=== PATIENT | female | born 1990 | race Caucasian/White ===

== ENCOUNTER 2021-11-07 18:07 | Inpatient (IN) | payer OTHER ==
[~2021-11-07] VITALS: Ht 180.3 cm; Wt 113.4 kg
[2021-11-07 21:09] LABS: HEMOGLOBIN 12.1 gm/dl (12.3-15.3); RED BLOOD COUNT 5.06 M/UL (4.00-5.10); WHITE BLOOD COUNT 9.3 K/UL (4.5-11.0)
[2021-11-07 21:28] LABS: BUN/CREATININE RATIO 9 (0-10)
[2021-11-08 05:46] LABS: HEMOGLOBIN 12.3 gm/dl (12.3-15.3); RED BLOOD COUNT 5.18 M/UL (4.00-5.10); WHITE BLOOD COUNT 10.7 K/UL (4.5-11.0)
[2021-11-08 06:14] LABS: BUN/CREATININE RATIO 13 (0-10)
[2021-11-08] MEDS ORDERED: GLIPIZIDE ER5 MG PO (09:49)
[2021-11-08] MEDS ORDERED: PROAIR HFA8.5 GM INH (09:49)
[2021-11-08] MEDS ORDERED: CARAFATE1 GM/10 ML PO (09:50)
[2021-11-08] MEDS ORDERED: LOSARTAN POTASS50 MG PO (09:50)
[2021-11-08] MEDS ORDERED: TIZANIDINE HCL4 MG PO (09:50)
[2021-11-08] MEDS ORDERED: PROTONIX 40 MG40 M1 PO (09:50)
[2021-11-08] MEDS ORDERED: IBUPROFEN200 MG PO (09:51)
[2021-11-08] MEDS ORDERED: METFORMIN HCL1000 MG PO (09:51)
[2021-11-08] MEDS ORDERED: CETIRIZINE HCL10 MG PO (09:51)
[2021-11-08] MEDS ORDERED: TUMS200 MG PO (09:51)
[2021-11-08 22:58] LABS: RED BLOOD COUNT 5.01 M/UL (4.00-5.10)
[2021-11-08 23:19] LABS: BUN/CREATININE RATIO 12 (0-10)
[2021-11-09 08:19] LABS: HEMOGLOBIN 12.5 gm/dl (12.3-15.3); RED BLOOD COUNT 5.17 M/UL (4.00-5.10); WHITE BLOOD COUNT 11.8 K/UL (4.5-11.0)
[2021-11-09 08:41] LABS: BUN/CREATININE RATIO 11 (0-10)
[2021-11-09] MEDS ORDERED: METOPROLOL SUCC50 MG PO (13:14)
[2021-11-09] MEDS ORDERED: ASPIRIN EC81 MG PO (13:14)
[2021-11-09] MEDS ORDERED: BRILINTA 90 MG90 MG PO (13:14)
[2021-11-09] MEDS ORDERED: CRESTOR20 MG PO (13:14)
[2021-11-09] MEDS ORDERED: NITROGLYCERIN0.4 MG SL (13:14)
[2021-11-09] MEDS ORDERED: ENTRESTO 24 MG1 EACH PO (13:14)
== END 2021-11-09 14:20 | disposition home or self-care (01) | DRG 246 ==
LOC: ER1 18:07 → CDU 22:25 → PROG CARE 22:25
PROVIDERS: Family Medicine; Internal Medicine; Internal Medicine Cardiovascular Disease; ADMIT Internal Medicine
PROC: B24BZZZ Ultrasonography of Heart with Aorta (ICD-10-PCS; principal; 2021-11-08)
PROC: 027034Z Dilation of Coronary Artery, One Artery with Drug-eluting Intraluminal Device, Percutaneous Approach (ICD-10-PCS; 2021-11-08)
PROC: 4A023N7 Measurement of Cardiac Sampling and Pressure, Left Heart, Percutaneous Approach (ICD-10-PCS; 2021-11-08)
PROC: B2111ZZ Fluoroscopy of Multiple Coronary Arteries using Low Osmolar Contrast (ICD-10-PCS; 2021-11-08)
DX: I21.4 Non-ST elevation (NSTEMI) myocardial infarction (principal); I50.21 Acute systolic (congestive) heart failure; Z68.41 Body mass index [BMI] 40.0-44.9, adult; E11.9 Type 2 diabetes mellitus without complications; E66.01 Morbid (severe) obesity due to excess calories; E78.5 Hyperlipidemia, unspecified; J45.20 Mild intermittent asthma, uncomplicated; I25.5 Ischemic cardiomyopathy; R00.0 Tachycardia, unspecified; I11.0 Hypertensive heart disease with heart failure; K21.9 Gastro-esophageal reflux disease without esophagitis; Z83.3 Family history of diabetes mellitus; Z79.4 Long term (current) use of insulin; Z79.899 Other long term (current) drug therapy; Z79.82 Long term (current) use of aspirin
CPT/HCPCS: ECHO; 36415; 71045; 80048; 80053; 80061; 80307; 82550; 82553; 82962; 83036; 83735; 84100; 84439; 84443; 84484; 84550; 85025; 85027; 85347; 85610; 85730; 93005; 93306; 94760; 96374; 96375; 96376; 99152; 99153; 99285; C1725; C1769; C1874; C1887; C1894; C9600; J1644; J2250; J2270; J2405; J3010; J7040; Q9967

== ENCOUNTER → 2021-12-09 | Outpatient (CLI) | payer OTHER ==
[~2021-12-09] MED LIST: ASPIRIN EC81 MG PO; BRILINTA 90 MG90 MG PO; CARAFATE1 GM/10 ML PO; CETIRIZINE HCL10 MG PO; CRESTOR20 MG PO; ENTRESTO 24 MG1 EACH PO; GLIPIZIDE ER5 MG PO; IBUPROFEN200 MG PO; LOSARTAN POTASS50 MG PO; METFORMIN HCL1000 MG PO; METOPROLOL SUCC50 MG PO; NITROGLYCERIN0.4 MG SL; PROAIR HFA8.5 GM INH; PROTONIX 40 MG40 M1 PO; TIZANIDINE HCL4 MG PO; TUMS200 MG PO
== END ==
LOC: HEART 5 08:30
DX: R94.30 Abnormal result of cardiovascular function study, unspecified (principal); I21.9 Acute myocardial infarction, unspecified; I08.3 Combined rheumatic disorders of mitral, aortic and tricuspid valves
CPT/HCPCS: 93306

== ENCOUNTER → 2021-12-15 | Outpatient (CLI) | payer OTHER | LOC: HEART 5 15:36 | DX: J45.909 Unspecified asthma, uncomplicated (principal); R94.2 Abnormal results of pulmonary function studies | CPT/HCPCS: 94010; 95012 ==